=== PATIENT | female | born 1965 | race African-American/Black ===

== ENCOUNTER 2019-07-08 08:18 | Day surgery (SDC) | payer OTHER ==
[2019-07-08] MEDS ORDERED: HYDROcodone /APAP 10/325 1 EACH TABLET PO ONE (08:48)
[2019-07-08] MEDS ORDERED: MIDAZOLAM HCL 2 MG/2 ML VIAL ONE (08:48)
[2019-07-08] MEDS ORDERED: ceFAZolin SODIUM 1 GM VIAL ONE (08:48)
[2019-07-08] MEDS ORDERED: 0.9 % SODIUM CHLORIDE PF 10 ML VIAL IJ ONE (08:48)
[2019-07-08] MEDS ORDERED: PROPOFOL 200 MG/20 ML VIAL IV ONE (08:48)
[2019-07-08] MEDS ORDERED: LACTATED RINGERS 1,000 ML IV.SOLN IV ONE (08:48)
[2019-07-08] MEDS ORDERED: MORPHINE SULFATE 10 MG/ML VIAL ONE (08:48)
[2019-07-08] MEDS ORDERED: LIDOCAINE HCL 1%/EPI. (1:100,000) MDV 20ML VIAL IJ ONE (08:48)
[2019-07-08] MEDS ORDERED: fentaNYL CITRATE/PF 100 MCG/2 ML INJ. ONE ×2 (08:48)
== END 2019-07-08 14:10 | disposition home or self-care (01) ==
LOC: OPSURG 08:18
PROVIDERS: ATTEND Physical Medicine & Rehabilitation
DX: M54.5 Low back pain (principal); M47.26 Other spondylosis with radiculopathy, lumbar region
CPT/HCPCS: 63650; J0690; J2250; J2270; J2704; J3010; J7120